=== PATIENT | male | born 1955 | race Caucasian/White ===

== ENCOUNTER 2021-10-15 18:25 | Emergency (ER) | payer MEDICARE, OTHER ==
[~2021-10-15 18:25] MED LIST: ASPIRIN CHEWABL81 MG PO; CETIRIZINE HCL10 MG PO; DEPAKOTE ER250 MG PO; DULERA 200 MCG8.8 GM INH; DUONEB 2.5-0.5M1 AMP INH; FLORANEX TABLE1 EACH PO; GLUCOTROL5 MG PO; HCTZ25 MG PO; LIPITOR40 MG PO; METFORMIN HCL500 M1 PO; METFORMIN HCL500 MG PO; MUCINEX 600MG600 MG PO; PRINIVIL20 MG PO; SINGULAIR10 MG PO; THEOPHYLLINE A300 MG PO; ULTRA-LIGHT RO1 EACH XX; VENTOLIN HFA IN18 GM INH; ZYPREXA 5MG TABL5 MG PO
[2021-10-15 18:57] LABS: BASOPHIL 0.5 % (0-2); EOSINOPHIL 1.4 % (0-7); HCT 34.9 % (42.0-52.0); HGB 11.4 g/dl (13.2-18.0); LYMPHOCYTE 33.2 % (15-48); MCH 31.3 pg (25.0-31.0); MCHC 32.7 g/dL (32.0-36.0); MCV 95.9 fL (78.0-100.0); MONOCYTE 13.6 % (0-12); MPV 9.9 fL (6.0-9.5); NEUTROPHIL 50.2 % (41-80); NRBC 0; PLT 142 K/uL (150-400); RBC 3.64 M/uL (4.70-6.00); RDW 12.9 % (11.5-14.0); WBC 6.5 K/uL (4.0-10.5)
[2021-10-15 19:11] LABS: BILIRUBIN NEGATIVE (NEGATIVE); BLOOD NEGATIVE Ery/uL (NEGATIVE); CLARITY CLEAR (CLEAR); COLOR YELLOW (YELLOW); GLUCOSE (U) 1+ mg/dL (NORMAL); LEUKOCYTES NEGATIVE Leu/uL (NEGATIVE); NITRITE NEGATIVE (NEGATIVE); PROTEIN NEGATIVE (NEGATIVE); SPECIFIC GRAVITY 1.015 (1.001-1.030)
[2021-10-15 19:17] LABS: LACTIC ACID 1.1 mmol/L (0.4-1.9)
[2021-10-15 19:28] LABS: ALBUMIN 2.5 g/dL (3.4-5.0); BILIRUBIN - TOTAL 0.2 mg/dL (0.2-1.0); CREATININE 0.61 mg/dL (0.67-1.17); GLOBULIN (CALCULATION) 3.4 g/dL; POTASSIUM 4.8 mmol/L (3.5-5.1); TOTAL PROTEIN 5.9 g/dL (6.4-8.2)
[2021-10-15 19:33] LABS: CORONAVIRUS 2019 SARS-COV-2 NEGATIVE (NEGATIVE); INFLUENZA A NAA NEGATIVE (NEGATIVE)
[2021-10-15] MEDS ORDERED: PREDNISONE 20MG20 MG PO (20:12)
== END 2021-10-15 21:27 | disposition home or self-care (01) ==
LOC: FER 18:25
PROVIDERS: Nurse Practitioner Family
DX: J44.1 Chronic obstructive pulmonary disease with (acute) exacerbation (principal); I11.0 Hypertensive heart disease with heart failure; I50.9 Heart failure, unspecified; Z20.822 Contact with and (suspected) exposure to COVID-19; Z87.891 Personal history of nicotine dependence; Z79.899 Other long term (current) drug therapy
CPT/HCPCS: 36415; 71045; 80053; 81003; 83605; 83880; 84145; 84484; 85025; 87040; 94640; 94664; J1100; U0002

== ENCOUNTER 2021-11-04 23:22 | Inpatient (IN) | payer MEDICARE, OTHER ==
[~2021-11-04] VITALS: Ht 185.4 cm; Wt 98.1 kg
[~2021-11-04 23:22] MED LIST changes: +PREDNISONE 20MG20 MG PO
[2021-11-04 23:38] LABS: BASOPHIL 0.2 % (0-2); EOSINOPHIL 0.1 % (0-7); HCT 34.2 % (42.0-52.0); HGB 11.8 g/dl (13.2-18.0); MCH 31.4 pg (25.0-31.0); MCHC 34.5 g/dL (32.0-36.0); MONOCYTE 7.8 % (0-12); MPV 8.6 fL (6.0-9.5); NEUTROPHIL 89.3 % (41-80); NRBC 0; PLT 214 K/uL (150-400); RBC 3.76 M/uL (4.70-6.00); RDW 13.3 % (11.5-14.0); WBC 17.7 K/uL (4.0-10.5)
[2021-11-05 00:08] LABS: LACTIC ACID 1.6 mmol/L (0.4-1.9)
[2021-11-05 00:10] LABS: ALBUMIN 2.8 g/dL (3.4-5.0); BILIRUBIN - TOTAL 0.4 mg/dL (0.2-1.0); CREATININE 0.5 mg/dL (0.67-1.17); GLOBULIN (CALCULATION) 3.8 g/dL; POTASSIUM 4.9 mmol/L (3.5-5.1); TOTAL PROTEIN 6.6 g/dL (6.4-8.2)
[2021-11-05 00:30] LABS: CORONAVIRUS 2019 SARS-COV-2 NEGATIVE (NEGATIVE); INFLUENZA A NAA NEGATIVE (NEGATIVE)
[2021-11-05] MEDS ORDERED: ACETAMINOPHEN500 M1 PO (05:39)
[2021-11-05] MEDS ORDERED: ADVAIR 250-501 EACH INH (05:40)
[2021-11-05] MEDS ORDERED: CETIRIZINE HCL10 MG PO ×2 (05:42→05:43)
[2021-11-05] MEDS ORDERED: DAILY VALUE1 EACH PO (05:44)
[2021-11-05] MEDS ORDERED: DEPAKOTE250 MG PO (05:46)
[2021-11-05] MEDS ORDERED: 3IN1 COMMODE (05:49)
[2021-11-05] MEDS ORDERED: METFORMIN HCL500 MG PO (05:49)
[2021-11-05] MEDS ORDERED: PROTONIX 40MG T40 MG PO (05:51)
[2021-11-05] MEDS ORDERED: LASIX40 MG PO (05:53)
[2021-11-05] MEDS ORDERED: GLUCOTROL5 MG PO (05:54)
[2021-11-05 06:01] LABS: HCT 36.7 % (42.0-52.0); HGB 12.2 g/dl (13.2-18.0); MCH 31.1 pg (25.0-31.0); MCHC 33.2 g/dL (32.0-36.0); MCV 93.6 fL (78.0-100.0); MPV 8.6 fL (6.0-9.5); RBC 3.92 M/uL (4.70-6.00); RDW 13.3 % (11.5-14.0); WBC 23.3 K/uL (4.0-10.5)
[2021-11-05 06:30] LABS: BUN/CREAT RATIO (CALC) 19.3 RATIO; C-REACTIVE PROTEIN 7.3 mg/dL (<=0.90); CREATININE 0.57 mg/dL (0.67-1.17); MAGNESIUM 1.6 mg/dL (1.8-2.4); PHOSPHORUS 4.3 mg/dL (2.6-4.7); POTASSIUM 3.9 mmol/L (3.5-5.1)
--- NOTE | 2021-11-05 13:55 | NUR ---
11/05/21 Mr. Paulino was admitted from [facility]. [facility] will accept back per Gosia Dias. He was admitted to [facility] on 10/02. A voicemail has been left for Ms. Paulino inquiring if her plan is to return to [facility].
[2021-11-06 06:13] LABS: BASOPHIL 0.1 % (0-2); EOSINOPHIL 0 % (0-7); HCT 29.7 % (42.0-52.0); LYMPHOCYTE 3.6 % (15-48); MCH 31.3 pg (25.0-31.0); MCHC 33.7 g/dL (32.0-36.0); MCV 93.1 fL (78.0-100.0); MONOCYTE 2.7 % (0-12); NEUTROPHIL 92.8 % (41-80); NRBC 0; PLT 180 K/uL (150-400); RBC 3.19 M/uL (4.70-6.00)
[2021-11-06 06:17] LABS: WBC 16.5 K/uL (4.0-10.5)
[2021-11-06 06:24] LABS: INR 1.17 (0.9-1.2); PROTHROMBIN TIME 14.3 SECONDS (11.8-13.4)
[2021-11-06 06:49] LABS: IRON % SATURATION 8.7 %SAT (20-50)
[2021-11-06 07:21] LABS: BUN 14 mg/dL (7-18); BUN/CREAT RATIO (CALC) 26.4 RATIO; CHLORIDE 97 mmol/L (98-107); CO2 (BICARBONATE) 33 mmol/L (21-32); CREATININE 0.53 mg/dL (0.67-1.17); GLUCOSE 242 mg/dL (74-106); POTASSIUM 4.4 mmol/L (3.5-5.1)
[2021-11-06 07:22] LABS: C-REACTIVE PROTEIN >18.00 mg/dL (<=0.90)
[2021-11-07 05:57] LABS: BASOPHIL 0.1 % (0-2); EOSINOPHIL 0 % (0-7); HCT 28.7 % (42.0-52.0); HGB 9.8 g/dl (13.2-18.0); LYMPHOCYTE 12.3 % (15-48); MCH 31.4 pg (25.0-31.0); MCHC 34.1 g/dL (32.0-36.0); MPV 9.3 fL (6.0-9.5); NEUTROPHIL 82.1 % (41-80); NRBC 0; PLT 208 K/uL (150-400); RBC 3.12 M/uL (4.70-6.00); RDW 13.6 % (11.5-14.0); WBC 14.7 K/uL (4.0-10.5)
[2021-11-07 06:31] LABS: CREATININE 0.59 mg/dL (0.67-1.17); POTASSIUM 4.5 mmol/L (3.5-5.1)
[2021-11-08 05:42] LABS: BASOPHIL 0.2 % (0-2); EOSINOPHIL 0 % (0-7); HCT 33.5 % (42.0-52.0); HGB 11.3 g/dl (13.2-18.0); LYMPHOCYTE 18.6 % (15-48); MCH 30.8 pg (25.0-31.0); MCHC 33.7 g/dL (32.0-36.0); MCV 91.3 fL (78.0-100.0); MONOCYTE 5.3 % (0-12); MPV 9.1 fL (6.0-9.5); NEUTROPHIL 75.1 % (41-80); NRBC 0; PLT 252 K/uL (150-400); RBC 3.67 M/uL (4.70-6.00); RDW 13.6 % (11.5-14.0); WBC 13.3 K/uL (4.0-10.5)
[2021-11-08 05:57] LABS: CREATININE 0.6 mg/dL (0.67-1.17); POTASSIUM 4.7 mmol/L (3.5-5.1)
[2021-11-08] MEDS ORDERED: FOLIC ACID1 MG PO (07:49)
[2021-11-08] MEDS ORDERED: LASIX40 MG PO (07:49)
[2021-11-08] MEDS ORDERED: METFORMIN HCL500 MG PO (09:08)
[2021-11-08] MEDS ORDERED: AUGMENTIN 500-1 EACH PO (11:34)
[2021-11-08] MEDS ORDERED: FLORANEX TABLE1 EACH PO (11:34)
== END 2021-11-08 15:25 | DRG 871 ==
LOC: FER 23:22 → FTCU 11-05 03:22
PROVIDERS: Emergency Medicine; Family Medicine; Nurse Practitioner; Nurse Practitioner Family; ADMIT Internal Medicine
DX: A41.9 Sepsis, unspecified organism (principal); J18.9 Pneumonia, unspecified organism; J96.21 Acute and chronic respiratory failure with hypoxia; I50.33 Acute on chronic diastolic (congestive) heart failure; J96.22 Acute and chronic respiratory failure with hypercapnia; G93.41 Metabolic encephalopathy; J44.1 Chronic obstructive pulmonary disease with (acute) exacerbation; J44.0 Chronic obstructive pulmonary disease with (acute) lower respiratory infection; E87.1 Hypo-osmolality and hyponatremia; I13.0 Hypertensive heart and chronic kidney disease with heart failure and stage 1 through stage 4 chronic kidney disease, or unspecified chronic kidney disease; R65.20 Severe sepsis without septic shock; Z20.822 Contact with and (suspected) exposure to COVID-19; Y95 Nosocomial condition; E11.22 Type 2 diabetes mellitus with diabetic chronic kidney disease; N18.9 Chronic kidney disease, unspecified; E83.42 Hypomagnesemia; I35.0 Nonrheumatic aortic (valve) stenosis; D64.9 Anemia, unspecified; R01.1 Cardiac murmur, unspecified; I25.10 Atherosclerotic heart disease of native coronary artery without angina pectoris; K21.9 Gastro-esophageal reflux disease without esophagitis; F31.9 Bipolar disorder, unspecified; E78.5 Hyperlipidemia, unspecified; I27.20 Pulmonary hypertension, unspecified; Z79.82 Long term (current) use of aspirin; Z79.84 Long term (current) use of oral hypoglycemic drugs; Z79.899 Other long term (current) drug therapy
CPT/HCPCS: 36415; 36600; 70450; 71045; 71275; 80048; 80053; 80202; 82140; 82607; 82803; 82962; 83036; 83540; 83550; 83605; 83615; 83735; 83880; 84100; 84145; 84443; 84484; 85025; 85379; 85610; 86140; 87040; 87077; 87186; 93005; 94010; 94640; 94664; 94760; 96365; 96367; 96375; 97162; 97165; 97530; 97530-GP; 97535; J1650; J1815; J1940; J2543; J2930; J3370; J3475; J3480; J7030; J7040; J7512; Q9967; U0002

== ENCOUNTER 2021-12-12 09:23 | Inpatient (IN) | payer MEDICARE, OTHER ==
[~2021-12-12] VITALS: Ht 185.4 cm; Wt 97.7 kg
[~2021-12-12 09:23] MED LIST changes: +3IN1 COMMODE; +ACETAMINOPHEN500 M1 PO; +ADVAIR 250-501 EACH INH; +AUGMENTIN 500-1 EACH PO; +DAILY VALUE1 EACH PO; +DEPAKOTE250 MG PO; +FOLIC ACID1 MG PO; +LASIX40 MG PO; +PROTONIX 40MG T40 MG PO
[2021-12-12 09:52] LABS: BASOPHIL 0.5 % (0-2); EOSINOPHIL 3.1 % (0-7); HCT 34.9 % (42.0-52.0); HGB 11.5 g/dl (13.2-18.0); LYMPHOCYTE 18.7 % (15-48); MCH 30.7 pg (25.0-31.0); MCV 93.3 fL (78.0-100.0); MONOCYTE 15.7 % (0-12); MPV 8.6 fL (6.0-9.5); NRBC 0; PLT 228 K/uL (150-400); RBC 3.74 M/uL (4.70-6.00); WBC 9.8 K/uL (4.0-10.5)
[2021-12-12 10:21] LABS: ALBUMIN 2.8 g/dL (3.4-5.0); BILIRUBIN - TOTAL 0.3 mg/dL (0.2-1.0); BUN/CREAT RATIO (CALC) 20.3 RATIO; CREATININE 0.59 mg/dL (0.67-1.17); GLOBULIN (CALCULATION) 4.1 g/dL; POTASSIUM 5.1 mmol/L (3.5-5.1); TOTAL PROTEIN 6.9 g/dL (6.4-8.2)
[2021-12-12 10:27] LABS: LACTIC ACID 1.1 mmol/L (0.4-1.9)
[2021-12-12 12:04] LABS: BILIRUBIN NEGATIVE (NEGATIVE); BLOOD NEGATIVE Ery/uL (NEGATIVE); CLARITY CLEAR (CLEAR); COLOR YELLOW (YELLOW); GLUCOSE (U) TRACE mg/dL (NORMAL); LEUKOCYTES NEGATIVE Leu/uL (NEGATIVE); NITRITE NEGATIVE (NEGATIVE); PROTEIN NEGATIVE (NEGATIVE)
[2021-12-13 04:04] LABS: BASOPHIL 0.6 % (0-2); EOSINOPHIL 3.1 % (0-7); HCT 36.3 % (42.0-52.0); HGB 11.8 g/dl (13.2-18.0); LYMPHOCYTE 30.9 % (15-48); MCH 30.4 pg (25.0-31.0); MCHC 32.5 g/dL (32.0-36.0); MCV 93.6 fL (78.0-100.0); MONOCYTE 16.2 % (0-12); MPV 8.8 fL (6.0-9.5); NEUTROPHIL 48.3 % (41-80); NRBC 0; PLT 239 K/uL (150-400); RBC 3.88 M/uL (4.70-6.00); RDW 14.1 % (11.5-14.0); WBC 8.1 K/uL (4.0-10.5)
[2021-12-13 04:35] LABS: BUN/CREAT RATIO (CALC) 20.3 RATIO; CREATININE 0.64 mg/dL (0.67-1.17); POTASSIUM 4.6 mmol/L (3.5-5.1)
== END 2021-12-13 09:45 | disposition other institution (70) | DRG 306 ==
LOC: FER 09:23 → FTCU 16:39
PROVIDERS: Emergency Medicine; Nurse Practitioner Acute Care; ADMIT Internal Medicine
DX: I35.0 Nonrheumatic aortic (valve) stenosis (principal); L89.323 Pressure ulcer of left buttock, stage 3; L89.313 Pressure ulcer of right buttock, stage 3; I50.32 Chronic diastolic (congestive) heart failure; J96.11 Chronic respiratory failure with hypoxia; I11.0 Hypertensive heart disease with heart failure; R27.0 Ataxia, unspecified; J44.9 Chronic obstructive pulmonary disease, unspecified; E11.65 Type 2 diabetes mellitus with hyperglycemia; E78.5 Hyperlipidemia, unspecified; F31.9 Bipolar disorder, unspecified; D64.9 Anemia, unspecified; Z87.01 Personal history of pneumonia (recurrent); Z86.14 Personal history of Methicillin resistant Staphylococcus aureus infection; Z99.81 Dependence on supplemental oxygen; Z82.49 Family history of ischemic heart disease and other diseases of the circulatory system; Z87.891 Personal history of nicotine dependence; Z79.82 Long term (current) use of aspirin; Z79.84 Long term (current) use of oral hypoglycemic drugs; Z79.899 Other long term (current) drug therapy; Z91.81 History of falling
CPT/HCPCS: 36415; 70450; 71045; 80048; 80053; 80164; 81003; 83605; 83880; 84145; 84484; 85025; 87040; 93005; 94010; 94640; 94760; 94761; 94762; J1650; U0002

== ENCOUNTER 2022-02-27 15:52 | Emergency (ER) | payer MEDICARE, OTHER ==
[2022-02-27 17:09] LABS: BASOPHIL 0.5 % (0-2); HGB 12.7 g/dl (13.2-18.0); LYMPHOCYTE 42.4 % (15-48); MCH 30.1 pg (25.0-31.0); MCHC 33.4 g/dL (32.0-36.0); MONOCYTE 12.8 % (0-12); MPV 9.3 fL (6.0-9.5); NRBC 0; PLT 199 K/uL (150-400); RBC 4.22 M/uL (4.70-6.00); RDW 13.2 % (11.5-14.0); WBC 6.4 K/uL (4.0-10.5)
[2022-02-27 17:23] LABS: ALBUMIN 3.1 g/dL (3.4-5.0); BILIRUBIN - TOTAL 0.3 mg/dL (0.2-1.0); BUN/CREAT RATIO (CALC) 18.5 RATIO; CREATININE 0.54 mg/dL (0.67-1.17); GLOBULIN (CALCULATION) 3.9 g/dL; POTASSIUM 4.6 mmol/L (3.5-5.1)
[2022-02-27 17:29] LABS: BILIRUBIN NEGATIVE (NEGATIVE); BLOOD NEGATIVE Ery/uL (NEGATIVE); CLARITY CLEAR (CLEAR); GLUCOSE (U) NORMAL (NORMAL); LEUKOCYTES NEGATIVE Leu/uL (NEGATIVE); NITRITE NEGATIVE (NEGATIVE); PROTEIN NEGATIVE (NEGATIVE); UROBILINOGEN 0.2 mg/dL (0.2-1.0); pH 6.5 (5.0-9.0)
[2022-02-27 17:34] LABS: COLOR STRAW (YELLOW)
[2022-02-27 18:29] LABS: CORONAVIRUS 2019 SARS-COV-2 NEGATIVE (NEGATIVE); INFLUENZA A NAA NEGATIVE (NEGATIVE)
[2022-02-27] MEDS ORDERED: VIBRAMYCIN100 MG PO (19:05)
[2022-02-27] MEDS ORDERED: PREDNISONE 20MG20 MG PO (19:05)
== END 2022-02-27 20:00 | disposition home or self-care (01) ==
LOC: FER 15:52
PROVIDERS: Nurse Practitioner Family
DX: J44.1 Chronic obstructive pulmonary disease with (acute) exacerbation (principal); E11.9 Type 2 diabetes mellitus without complications; I10 Essential (primary) hypertension; Z20.822 Contact with and (suspected) exposure to COVID-19; Z79.82 Long term (current) use of aspirin; Z79.84 Long term (current) use of oral hypoglycemic drugs; Z79.899 Other long term (current) drug therapy
CPT/HCPCS: 36415; 36600; 71045; 80053; 81003; 82803; 83880; 85025; 96372; J0696; J1100; J2001; U0002

== ENCOUNTER 2022-03-11 00:22 | Emergency (ER) | payer MEDICARE, OTHER ==
[~2022-03-11 00:22] MED LIST changes: +VIBRAMYCIN100 MG PO
[2022-03-11 01:07] LABS: BASOPHIL 0.5 % (0-2); EOSINOPHIL 2.1 % (0-7); HCT 39.2 % (42.0-52.0); LYMPHOCYTE 39.4 % (15-48); MCH 30.2 pg (25.0-31.0); MCHC 33.2 g/dL (32.0-36.0); MCV 91.2 fL (78.0-100.0); MONOCYTE 14.2 % (0-12); MPV 9.1 fL (6.0-9.5); NRBC 0; PLT 175 K/uL (150-400); RDW 13.4 % (11.5-14.0)
[2022-03-11 01:21] LABS: BILIRUBIN - TOTAL 0.3 mg/dL (0.2-1.0); BUN/CREAT RATIO (CALC) 20.7 RATIO; CREATININE 0.58 mg/dL (0.67-1.17); GLOBULIN (CALCULATION) 3.6 g/dL; POTASSIUM 4.7 mmol/L (3.5-5.1); TOTAL PROTEIN 6.6 g/dL (6.4-8.2)
== END 2022-03-11 03:34 | disposition home or self-care (01) ==
LOC: FER 00:22
PROVIDERS: Emergency Medicine
DX: S40.212A Abrasion of left shoulder, initial encounter (principal); S80.812A Abrasion, left lower leg, initial encounter; J44.9 Chronic obstructive pulmonary disease, unspecified; E11.9 Type 2 diabetes mellitus without complications; Z23 Encounter for immunization; W01.0XXA Fall on same level from slipping, tripping and stumbling without subsequent striking against object, initial encounter
CPT/HCPCS: 36415; 71045; 73030; 80053; 85025; 90471; 90715; J7030

== ENCOUNTER 2022-03-18 00:44 | Inpatient (IN) | payer MEDICARE, OTHER ==
[~2022-03-18] VITALS: Ht 185.4 cm; Wt 100.2 kg
[2022-03-18 01:13] LABS: BASOPHIL 0.6 % (0-2); HCT 36.6 % (42.0-52.0); HGB 12.4 g/dl (13.2-18.0); LYMPHOCYTE 21.2 % (15-48); MCH 29.7 pg (25.0-31.0); MCHC 33.9 g/dL (32.0-36.0); MCV 87.8 fL (78.0-100.0); MONOCYTE 13.3 % (0-12); MPV 8.8 fL (6.0-9.5); NEUTROPHIL 62.2 % (41-80); NRBC 0; PLT 170 K/uL (150-400); RBC 4.17 M/uL (4.70-6.00); RDW 13.1 % (11.5-14.0); WBC 9.7 K/uL (4.0-10.5)
[2022-03-18 01:25] LABS: INR 0.87 (0.9-1.2); PROTHROMBIN TIME 11.6 SECONDS (11.9-13.9)
[2022-03-18 01:26] LABS: PTT 29.8 SECONDS (24.9-34.6)
[2022-03-18 01:36] LABS: BILIRUBIN - TOTAL 0.3 mg/dL (0.2-1.0); BUN/CREAT RATIO (CALC) 14.3 RATIO; CREATININE 0.49 mg/dL (0.67-1.17); GLOBULIN (CALCULATION) 3.7 g/dL; POTASSIUM 4.7 mmol/L (3.5-5.1); TOTAL PROTEIN 6.7 g/dL (6.4-8.2)
[2022-03-18 01:41] LABS: BILIRUBIN NEGATIVE (NEGATIVE); BLOOD NEGATIVE Ery/uL (NEGATIVE); CLARITY CLEAR (CLEAR); COLOR YELLOW (YELLOW); GLUCOSE (U) 3+ mg/dL (NORMAL); LEUKOCYTES NEGATIVE Leu/uL (NEGATIVE); NITRITE NEGATIVE (NEGATIVE); PROTEIN 1+ mg/dL (NEGATIVE); UROBILINOGEN 0.2 mg/dL (0.2-1.0)
[2022-03-18 01:47] LABS: CORONAVIRUS 2019 SARS-COV-2 NEGATIVE (NEGATIVE); INFLUENZA A NAA NEGATIVE (NEGATIVE)
[2022-03-18 01:47] LABS: URINARY WBC RARE
[2022-03-18 01:48] LABS: BACTERIA TRACE
[2022-03-18 07:17] LABS: BUN/CREAT RATIO (CALC) 15.1 RATIO; CREATININE 0.53 mg/dL (0.67-1.17); POTASSIUM 4.7 mmol/L (3.5-5.1)
[2022-03-18] MEDS ORDERED: METFORMIN HCL500 MG PO (09:40)
[2022-03-18] MEDS ORDERED: COLACE100 MG PO (09:41)
--- NOTE | 2022-03-18 10:09 | NUR ---
LEFT MSG WITH WITH TO DISCUSS D/C NEEDS
--- NOTE | 2022-03-18 14:48 | NUR ---
CALLED AND SPOKE TO PT , PT WAS GOING TO OUTPT THERAPY AND WAS TOLD BY THEM THAT PT NEEDS INPT THERAPY AND SHE HAD TAKING PAPERS TO [facility] AND HAD BEEN TRYING TO CONTACT THEM. MRS LORENZO'S 1ST CHOICE FOR THERAPY IS [facility]. CALLED AND SPOKE WITH NOLAN PEREZ WITH [facility] AND FAXED REQUESTED REFERRAL CLINICALS NEEDED FAXED [phone] ALSO CALLED MARIANELA WITH [facility] SHE WILL LOOK AT [facility]. FAX CLINICALS REQUESTED [phone] PT DOES HAVE WALKER AND COMMODE SEAT AT HOME
[2022-03-19 06:40] LABS: HCT 36.6 % (42.0-52.0); MCH 29.6 pg (25.0-31.0); MCHC 32.8 g/dL (32.0-36.0); MCV 90.4 fL (78.0-100.0); MPV 8.7 fL (6.0-9.5); RBC 4.05 M/uL (4.70-6.00); RDW 13.5 % (11.5-14.0); WBC 10.2 K/uL (4.0-10.5)
[2022-03-19 07:24] LABS: BUN/CREAT RATIO (CALC) 28.2 RATIO; CREATININE 0.85 mg/dL (0.67-1.17); MAGNESIUM 2.2 mg/dL (1.8-2.4); POTASSIUM 4.3 mmol/L (3.5-5.1)
--- NOTE | 2022-03-19 09:11 | NUR ---
LEFTY FROM [facility] CALLED AND REQUESTED UPDATES ON PT. UPDATES FAXED TO [phone]. LEFTY STATED SHE WILL BE HERE LATER TO ASSESS PT.
--- NOTE | 2022-03-19 10:25 | NUR ---
REFERRAL SENT TO [facility] FOR SNF.
[2022-03-20] MEDS ORDERED: SINEMET 25-1001 EACH PO (11:08)
== END 2022-03-20 13:00 | DRG 643 ==
LOC: FER 00:44 → FMS 03:27
PROVIDERS: Emergency Medicine; Nurse Practitioner Acute Care; ADMIT Internal Medicine
DX: E22.2 Syndrome of inappropriate secretion of antidiuretic hormone (principal); G93.41 Metabolic encephalopathy; J96.11 Chronic respiratory failure with hypoxia; I50.32 Chronic diastolic (congestive) heart failure; I35.0 Nonrheumatic aortic (valve) stenosis; G20 Parkinson's disease; F03.90 Unspecified dementia, unspecified severity, without behavioral disturbance, psychotic disturbance, mood disturbance, and anxiety; J44.9 Chronic obstructive pulmonary disease, unspecified; E78.5 Hyperlipidemia, unspecified; L89.322 Pressure ulcer of left buttock, stage 2; L89.312 Pressure ulcer of right buttock, stage 2; Z20.822 Contact with and (suspected) exposure to COVID-19; I11.0 Hypertensive heart disease with heart failure; F31.9 Bipolar disorder, unspecified; I25.10 Atherosclerotic heart disease of native coronary artery without angina pectoris; E11.65 Type 2 diabetes mellitus with hyperglycemia; F17.210 Nicotine dependence, cigarettes, uncomplicated; S40.022A Contusion of left upper arm, initial encounter; S40.021A Contusion of right upper arm, initial encounter; W19.XXXA Unspecified fall, initial encounter; Z99.81 Dependence on supplemental oxygen; Z82.49 Family history of ischemic heart disease and other diseases of the circulatory system
CPT/HCPCS: 36415; 70450; 71045; 80048; 80053; 81001; 83735; 84300; 84484; 85025; 85610; 85730; 93005; 94010; 94640; 97116; 97162; 97166; 97530-GP; J1650; J7030; U0002

== ENCOUNTER 2022-04-14 20:45 | Inpatient (IN) | payer MEDICARE, OTHER ==
[~2022-04-14] VITALS: Ht 185.4 cm; Wt 99.8 kg
[~2022-04-14 20:45] MED LIST changes: +COLACE100 MG PO; +SINEMET 25-1001 EACH PO
[2022-04-14 21:08] LABS: BASOPHIL 0.2 % (0-2); EOSINOPHIL 0.1 % (0-7); HCT 36.9 % (42.0-52.0); HGB 12.4 g/dl (13.2-18.0); LYMPHOCYTE 5.3 % (15-48); MCH 29.5 pg (25.0-31.0); MCHC 33.6 g/dL (32.0-36.0); MCV 87.9 fL (78.0-100.0); MONOCYTE 8.5 % (0-12); MPV 8.8 fL (6.0-9.5); NEUTROPHIL 84.9 % (41-80); NRBC 0; PLT 212 K/uL (150-400); RDW 13.8 % (11.5-14.0); WBC 21.8 K/uL (4.0-10.5)
[2022-04-14 21:30] LABS: ALBUMIN 3.1 g/dL (3.4-5.0); BILIRUBIN - TOTAL 0.5 mg/dL (0.2-1.0); BUN/CREAT RATIO (CALC) 17.5 RATIO; CREATININE 0.57 mg/dL (0.67-1.17); POTASSIUM 5.1 mmol/L (3.5-5.1); TOTAL PROTEIN 7.1 g/dL (6.4-8.2)
[2022-04-14 21:36] LABS: LACTIC ACID 2.6 mmol/L (0.4-1.9)
[2022-04-15 00:58] LABS: INFLUENZA A NAA NEGATIVE (NEGATIVE)
[2022-04-15 01:13] LABS: CORONAVIRUS 2019 SARS-COV-2 POSITIVE (NEGATIVE)
[2022-04-15] MEDS ORDERED: LASIX40 MG PO (02:25)
[2022-04-15] MEDS ORDERED: ZYRTEC10 MG PO (02:26)
[2022-04-15 03:03] LABS: BILIRUBIN NEGATIVE (NEGATIVE); BLOOD NEGATIVE Ery/uL (NEGATIVE); CLARITY CLEAR (CLEAR); COLOR YELLOW (YELLOW); GLUCOSE (U) 1+ mg/dL (NORMAL); LEUKOCYTES NEGATIVE Leu/uL (NEGATIVE); NITRITE NEGATIVE (NEGATIVE); PROTEIN NEGATIVE (NEGATIVE); UROBILINOGEN 0.2 mg/dL (0.2-1.0); pH 7.5 (5.0-9.0)
[2022-04-15 07:22] LABS: BUN/CREAT RATIO (CALC) 14.5 RATIO; CREATININE 0.55 mg/dL (0.67-1.17); POTASSIUM 4.6 mmol/L (3.5-5.1)
--- NOTE | 2022-04-15 15:42 | NUR ---
04/15/22 Mr. Paulino lives at home with his spouse. He has 02 at 2L, portable, rw and 3in1. He receives treatment at [facility] Outpatient PT. Mr. Paulino was discharged from [facility] approximately 3 weeks ago. Ms. Paulino would like for him to return. [facility] will consider patients dx w COVID.
[2022-04-16 07:07] LABS: BASOPHIL 0.1 % (0-2); EOSINOPHIL 0 % (0-7); HCT 36.2 % (42.0-52.0); HGB 11.7 g/dl (13.2-18.0); LYMPHOCYTE 20.8 % (15-48); MCH 29.3 pg (25.0-31.0); MCHC 32.3 g/dL (32.0-36.0); MCV 90.7 fL (78.0-100.0); MONOCYTE 8.9 % (0-12); MPV 9.5 fL (6.0-9.5); NEUTROPHIL 69.7 % (41-80); NRBC 0; PLT 213 K/uL (150-400); RBC 3.99 M/uL (4.70-6.00); RDW 14.2 % (11.5-14.0); WBC 8.8 K/uL (4.0-10.5)
[2022-04-16 08:11] LABS: ALBUMIN 2.6 g/dL (3.4-5.0); BILIRUBIN - TOTAL 0.3 mg/dL (0.2-1.0); BUN/CREAT RATIO (CALC) 26.8 RATIO; CREATININE 0.56 mg/dL (0.67-1.17); GLOBULIN (CALCULATION) 3.8 g/dL; POTASSIUM 4.5 mmol/L (3.5-5.1); TOTAL PROTEIN 6.4 g/dL (6.4-8.2)
--- NOTE | 2022-04-16 15:16 | NUR ---
04/16/22 DC planning options were discussed with Ms. Paulino. Clinicals were submitted to [facility]. However, Ms. Paulino was educated to the unlikelihood that they will accept him becuase he is now walking 200' with supervision. Ms. Paulino would like to resume PT at [facility] Outpatient. - Mr. Paulino's impulsivity was discussed. Ms. Paulino reports that he has a dx of bipolar disease and is prescribed Depakot. Impulsivity is a S/E. Recommendations were made for Ms. Paulino to discuss the S/E with Veronica.
[2022-04-17 07:04] LABS: BASOPHIL 0.2 % (0-2); EOSINOPHIL 0.1 % (0-7); HCT 34.3 % (42.0-52.0); HGB 11.2 g/dl (13.2-18.0); LYMPHOCYTE 26.2 % (15-48); MCH 29.7 pg (25.0-31.0); MCHC 32.7 g/dL (32.0-36.0); MONOCYTE 9.7 % (0-12); MPV 9.6 fL (6.0-9.5); NEUTROPHIL 63.5 % (41-80); NRBC 0; PLT 232 K/uL (150-400); RBC 3.77 M/uL (4.70-6.00); RDW 14.6 % (11.5-14.0)
[2022-04-17 07:22] LABS: BUN/CREAT RATIO (CALC) 30.6 RATIO; CREATININE 0.62 mg/dL (0.67-1.17); POTASSIUM 4.4 mmol/L (3.5-5.1)
[2022-04-17] MEDS ORDERED: AUGMENTIN 500-1 EACH PO (14:53)
[2022-04-17] MEDS ORDERED: VIBRAMYCIN100 MG PO (14:53)
[2022-04-17] MEDS ORDERED: DEXAMETHASONE 2M2 MG PO (14:55)
== END 2022-04-17 17:41 | disposition home or self-care (01) | DRG 871 ==
LOC: FER 20:45 → FMS 23:24
PROVIDERS: Emergency Medicine; Nurse Practitioner; Nurse Practitioner Acute Care; ADMIT Internal Medicine
PROC: 3E03329 Introduction of Other Anti-infective into Peripheral Vein, Percutaneous Approach (ICD-10-PCS; principal; 2022-04-15)
PROC: XW033E5 Introduction of Remdesivir Anti-infective into Peripheral Vein, Percutaneous Approach, New Technology Group 5 (ICD-10-PCS; 2022-04-15)
PROC: 8E0ZXY6 Isolation (ICD-10-PCS; 2022-04-15)
PROC: 3E0DX3Z Introduction of Anti-inflammatory into Mouth and Pharynx, External Approach (ICD-10-PCS; 2022-04-15)
DX: A41.89 Other specified sepsis (principal); G93.41 Metabolic encephalopathy; J15.9 Unspecified bacterial pneumonia; U07.1 COVID-19; J12.82 Pneumonia due to coronavirus disease 2019; E87.2 Acidosis; J44.0 Chronic obstructive pulmonary disease with (acute) lower respiratory infection; J44.1 Chronic obstructive pulmonary disease with (acute) exacerbation; J96.11 Chronic respiratory failure with hypoxia; E22.2 Syndrome of inappropriate secretion of antidiuretic hormone; I50.32 Chronic diastolic (congestive) heart failure; C34.12 Malignant neoplasm of upper lobe, left bronchus or lung; R65.20 Severe sepsis without septic shock; I35.0 Nonrheumatic aortic (valve) stenosis; R41.89 Other symptoms and signs involving cognitive functions and awareness; E78.5 Hyperlipidemia, unspecified; I11.0 Hypertensive heart disease with heart failure; I25.10 Atherosclerotic heart disease of native coronary artery without angina pectoris; G20 Parkinson's disease; E11.65 Type 2 diabetes mellitus with hyperglycemia; R29.6 Repeated falls; Z99.81 Dependence on supplemental oxygen; Z82.49 Family history of ischemic heart disease and other diseases of the circulatory system; Z80.1 Family history of malignant neoplasm of trachea, bronchus and lung; Z87.891 Personal history of nicotine dependence; Z79.84 Long term (current) use of oral hypoglycemic drugs; Z79.899 Other long term (current) drug therapy
CPT/HCPCS: 36415; 36600; 70450; 71045; 71250; 80048; 80053; 80164; 80202; 81001; 82728; 82803; 83036; 83605; 83615; 84145; 84484; 85025; 87040; 92523; 93005; 94010; 94640; 94664; 94667; 94668; 94760; 97162; 97166; 97530-GP; C9399; J0692; J1650; J3370; J7030; J7040; J7050; J8540; U0002

== ENCOUNTER 2022-05-19 06:33 | Emergency (ER) | payer MEDICARE, OTHER ==
[~2022-05-19 06:33] MED LIST changes: +DEXAMETHASONE 2M2 MG PO; +ZYRTEC10 MG PO
[2022-05-19 07:13] LABS: BASOPHIL 0.2 % (0-2); EOSINOPHIL 0 % (0-7); HCT 39.7 % (42.0-52.0); HGB 13.3 g/dl (13.2-18.0); LYMPHOCYTE 14.4 % (15-48); MCH 30.2 pg (25.0-31.0); MCHC 33.5 g/dL (32.0-36.0); MCV 90.2 fL (78.0-100.0); MONOCYTE 11.7 % (0-12); NEUTROPHIL 73.2 % (41-80); NRBC 0; PLT 230 K/uL (150-400); RDW 14.2 % (11.5-14.0)
[2022-05-19 07:18] LABS: INR 0.99 (0.9-1.2); PROTHROMBIN TIME 12.8 SECONDS (11.9-13.9); PTT 32.7 SECONDS (24.9-34.6)
[2022-05-19 07:50] LABS: ALBUMIN 2.7 g/dL (3.4-5.0); BILIRUBIN - TOTAL 0.4 mg/dL (0.2-1.0); BUN/CREAT RATIO (CALC) 12.5 RATIO; CREATININE 0.56 mg/dL (0.67-1.17); POTASSIUM 4.4 mmol/L (3.5-5.1); TOTAL PROTEIN 6.7 g/dL (6.4-8.2)
[2022-05-19 08:17] LABS: CORONAVIRUS 2019 SARS-COV-2 NEGATIVE (NEGATIVE); INFLUENZA A NAA NEGATIVE (NEGATIVE)
== END 2022-05-19 10:28 | disposition home or self-care (01) ==
LOC: FER 06:33
PROVIDERS: Emergency Medicine
DX: S80.811A Abrasion, right lower leg, initial encounter (principal); I50.9 Heart failure, unspecified; Z20.822 Contact with and (suspected) exposure to COVID-19; W19.XXXA Unspecified fall, initial encounter; Y92.009 Unspecified place in unspecified non-institutional (private) residence as the place of occurrence of the external cause
CPT/HCPCS: 36415; 71045; 80053; 83880; 84484; 85025; 85610; 85730; 93005; U0002